=== PATIENT | male | born 1985 | race Caucasian/White ===

== ENCOUNTER 2017-04-28 09:08 | Emergency (ER) | payer OTHER ==
[~2017-04-28] VITALS: Ht 177.8 cm; Wt 104.3 kg
[~2017-04-28 09:08] MED LIST: AMOXICILLIN500 M2 PO
[2017-04-28 09:53] LABS: BASO % 0.3 % (0.0-1.0); EOS # 0.1 10*3/uL (0.0-0.4); EOS % 0.9 % (1.0-4.0); HEMOGLOBIN 14.9 g/dl (14.0-18.0); LYMPH # 1.3 10*3/uL (1.3-4.4); LYMPH % 18.9 % (27.0-41.0); MEAN CELL VOLUME 89.5 fl (80.0-94.0); MEAN CORPUSCULAR HGB CONC 32.4 g/dl (33.0-37.0); MEAN PLATELET VOLUME 10.7 fl (9.6-12.3); MONO # 0.4 10*3/uL (0.1-1.0); MONO % 6.3 % (3.0-9.0); NEUT # 5.1 10*3/uL (2.3-7.9); NEUT % 73.3 % (47.0-73.0); PLATELET COUNT AUTOMATED 255 10*3/uL (130-400); RED BLOOD COUNT 5.14 10*6/uL (4.50-5.90); RED CELL DISTRI WIDTH 12.5 % (0-14.5)
[2017-04-28 10:02] LABS: BILIRUBIN 1+ (NEGATIVE); BLOOD NEGATIVE (NEGATIVE); CLARITY CLOUDY (CLEAR); COLOR YELLOW (YELLOW); GLUCOSE NEGATIVE (NEGATIVE); KETONE 1+ (NEGATIVE); LEUKO ESTERASE NEGATIVE (NEGATIVE); NITRITE NEGATIVE (NEGATIVE); SPECIFIC GRAVITY 1.025 (1.005-1.030)
[2017-04-28 10:09] LABS: URINE AMPHETAMINES < 1000 (1000ng/ml); URINE BARBITURATES < 200 (200ng/ml); URINE BENZODIAZEPINES < 200 (200ng/ml); URINE CANNABINOIDS (THC) < 50 (50ng/ml); URINE COCAINE < 300 (300ng/ml); URINE METHADONE < 300 (300ng/ml); URINE OPIATES < 300 (300ng/ml)
[2017-04-28 10:10] LABS: MUCOUS 2+
[2017-04-28 10:11] LABS: ALBUMIN 3.9 gm/dl (3.1-4.5); ALKALINE PHOSPHATASE 76 U/L (45-117); BUN 15 mg/dl (7-24); CHLORIDE 103 mmol/L (98-107); CREATININE 1.31 mg/dL (0.70-1.30); POTASSIUM 3.3 mmol/L (3.5-5.1); SGOT/AST 22 IU/L (3-35); SGPT/ALT 31 U/L (12-78); SODIUM 139 mmol/L (136-145); TOTAL PROTEIN 7.9 gm/dL (6.4-8.2)
[2017-04-28 10:12] LABS: BACTERIA 1+
[2017-04-28 10:14] LABS: ACETAMINOPHEN (TYLENOL) < 2.0 ug/ml (10-30); ETHYL ALCOHOL < 3.0 mg/dl (<3)
[2017-04-28 10:14] LABS: URINE PHENCYCLIDINE < 25 (25ng/ml)
== END 2017-04-28 17:47 | disposition short-term general hospital (02) ==
LOC: ED 09:08
PROVIDERS: Nurse Practitioner Family
DX: F41.9 Anxiety disorder, unspecified (principal); F32.9 Major depressive disorder, single episode, unspecified; Z88.5 Allergy status to narcotic agent

== ENCOUNTER 2017-05-27 10:43 | Emergency (ER) | payer OTHER ==
[~2017-05-27] VITALS: Ht 177.8 cm; Wt 132.0 kg
[2017-05-27] MEDS ORDERED: ZOCOR5 MG PO (10:50)
[2017-05-27] MEDS ORDERED: MELATONIN3 MG PO (10:51)
[2017-05-27] MEDS ORDERED: PROPRANOLOL HCL10 MG PO (10:51)
[2017-05-27] MEDS ORDERED: LAMICTAL25 MG PO (10:51)
[2017-05-27] MEDS ORDERED: LATU80TA PO (10:52)
[2017-05-27 11:08] LABS: BASO # 0.1 10*3/uL (0.0-0.1); BASO % 0.7 % (0.0-1.0); EOS # 0.1 10*3/uL (0.0-0.4); EOS % 0.6 % (1.0-4.0); HEMATOCRIT 45.2 % (42.0-52.0); HEMOGLOBIN 14.9 g/dl (14.0-18.0); LYMPH # 1.6 10*3/uL (1.3-4.4); LYMPH % 18.4 % (27.0-41.0); MEAN CELL VOLUME 89.7 fl (80.0-94.0); MEAN CORPUSCULAR HGB 29.6 pg (27.0-31.0); MEAN PLATELET VOLUME 10.4 fl (9.6-12.3); MONO # 0.5 10*3/uL (0.1-1.0); MONO % 5.4 % (3.0-9.0); NEUT # 6.4 10*3/uL (2.3-7.9); NEUT % 74.7 % (47.0-73.0); PLATELET COUNT AUTOMATED 261 10*3/uL (130-400); RED BLOOD COUNT 5.04 10*6/uL (4.50-5.90); RED CELL DISTRI WIDTH 12.5 % (0-14.5); WHITE BLOOD COUNT 8.6 10*3/uL (4.8-10.8)
[2017-05-27 11:23] LABS: ALBUMIN 3.7 gm/dl (3.1-4.5); ALKALINE PHOSPHATASE 68 U/L (45-117); BUN 14 mg/dl (7-24); CHLORIDE 105 mmol/L (98-107); CREATININE 1.18 mg/dL (0.70-1.30); POTASSIUM 3.9 mmol/L (3.5-5.1); SGOT/AST 17 IU/L (3-35); SGPT/ALT 27 U/L (12-78); SODIUM 140 mmol/L (136-145); TOTAL PROTEIN 7.3 gm/dL (6.4-8.2)
[2017-05-27 11:24] LABS: ACETAMINOPHEN (TYLENOL) < 2.0 ug/ml (10-30); ETHYL ALCOHOL < 3.0 mg/dl (<3)
[2017-05-27 11:40] LABS: BILIRUBIN NEGATIVE (NEGATIVE); BLOOD NEGATIVE (NEGATIVE); CLARITY SL CLOUDY (CLEAR); COLOR YELLOW (YELLOW); GLUCOSE NEGATIVE (NEGATIVE); KETONE NEGATIVE (NEGATIVE); LEUKO ESTERASE NEGATIVE (NEGATIVE); NITRITE NEGATIVE (NEGATIVE); SPECIFIC GRAVITY 1.015 (1.005-1.030)
[2017-05-27 11:48] LABS: URINE AMPHETAMINES < 1000 (1000ng/ml); URINE BARBITURATES < 200 (200ng/ml); URINE BENZODIAZEPINES < 200 (200ng/ml); URINE CANNABINOIDS (THC) < 50 (50ng/ml); URINE COCAINE < 300 (300ng/ml); URINE METHADONE < 300 (300ng/ml); URINE OPIATES < 300 (300ng/ml); URINE PHENCYCLIDINE < 25 (25ng/ml)
[2017-05-27 11:49] LABS: BACTERIA TRACE
== END 2017-05-27 14:23 | disposition home health service (06) ==
LOC: ED 10:43
PROVIDERS: Nurse Practitioner Family
DX: R45.851 Suicidal ideations (principal); F41.9 Anxiety disorder, unspecified; F32.9 Major depressive disorder, single episode, unspecified; Z88.6 Allergy status to analgesic agent; Z91.018 Allergy to other foods; Z79.899 Other long term (current) drug therapy

== ENCOUNTER 2017-06-24 10:04 | Emergency (ER) | payer OTHER ==
[~2017-06-24] VITALS: Ht 177.8 cm; Wt 90.7 kg
[~2017-06-24 10:04] MED LIST changes: +LAMICTAL25 MG PO; +LATU80TA PO; +MELATONIN3 MG PO; +PROPRANOLOL HCL10 MG PO; +ZOCOR5 MG PO
[2017-06-24 10:34] LABS: BASO # 0.1 10*3/uL (0.0-0.1); BASO % 1.2 % (0.0-1.0); EOS # 0.5 10*3/uL (0.0-0.4); EOS % 5.7 % (1.0-4.0); HEMATOCRIT 44.8 % (42.0-52.0); HEMOGLOBIN 14.5 g/dl (14.0-18.0); LYMPH # 1.6 10*3/uL (1.3-4.4); MEAN CELL VOLUME 90.1 fl (80.0-94.0); MEAN CORPUSCULAR HGB 29.2 pg (27.0-31.0); MEAN CORPUSCULAR HGB CONC 32.4 g/dl (33.0-37.0); MEAN PLATELET VOLUME 10.5 fl (9.6-12.3); MONO # 0.9 10*3/uL (0.1-1.0); MONO % 9.6 % (3.0-9.0); NEUT # 6.2 10*3/uL (2.3-7.9); NEUT % 66.3 % (47.0-73.0); PLATELET COUNT AUTOMATED 246 10*3/uL (130-400); RED BLOOD COUNT 4.97 10*6/uL (4.50-5.90); RED CELL DISTRI WIDTH 12.7 % (0-14.5); WHITE BLOOD COUNT 9.3 10*3/uL (4.8-10.8)
[2017-06-24 10:46] LABS: BUN 16 mg/dl (7-24); CHLORIDE 106 mmol/L (98-107); SODIUM 140 mmol/L (136-145)
== END 2017-06-24 13:25 | disposition home or self-care (01) ==
LOC: ED 10:04
PROVIDERS: Emergency Medicine
DX: R59.1 Generalized enlarged lymph nodes (principal); Z79.899 Other long term (current) drug therapy; Z88.5 Allergy status to narcotic agent; Z87.891 Personal history of nicotine dependence

== ENCOUNTER → 2017-06-27 | Outpatient (CLI) | payer OTHER ==
[2017-06-27 10:35] LABS: HEMATOCRIT 48.8 % (42.0-52.0); HEMOGLOBIN 15.5 g/dl (14.0-18.0); MEAN CELL VOLUME 90.7 fl (80.0-94.0); MEAN CORPUSCULAR HGB 28.8 pg (27.0-31.0); MEAN CORPUSCULAR HGB CONC 31.8 g/dl (33.0-37.0); MEAN PLATELET VOLUME 10.2 fl (9.6-12.3); RED BLOOD COUNT 5.38 10*6/uL (4.50-5.90); RED CELL DISTRI WIDTH 12.6 % (0-14.5); WHITE BLOOD COUNT 6.8 10*3/uL (4.8-10.8)
[2017-06-27 11:07] LABS: BUN 19 mg/dl (7-24); CHLORIDE 104 mmol/L (98-107); CHOLESTEROL 187 mg/dL (<200); CREATININE 1.31 mg/dL (0.70-1.30); POTASSIUM 4.3 mmol/L (3.5-5.1); SGOT/AST 13 IU/L (3-35); SGPT/ALT 22 U/L (12-78); SODIUM 141 mmol/L (136-145); TRIGLYCERIDES 105 mg/dl (<150); VLDL CHOLESTEROL 21 mg/dL (6-40)
[2017-06-27 11:09] LABS: ALKALINE PHOSPHATASE 77 U/L (45-117); CPK 63 U/L (39-308); HDL CHOLESTEROL 36 mg/dl (40-60); LDL CHOLESTEROL 130 mg/dL (9-159); TOTAL PROTEIN 7.9 gm/dL (6.4-8.2)
== END | disposition home or self-care (01) ==
LOC: LAB 10:09
PROVIDERS: Family Medicine
DX: R22.1 Localized swelling, mass and lump, neck (principal); E55.9 Vitamin D deficiency, unspecified; E78.00 Pure hypercholesterolemia, unspecified; R53.83 Other fatigue

== ENCOUNTER → 2017-07-17 | Outpatient (CLI) | payer OTHER ==
[2017-07-17 13:40] LABS: BUN 17 mg/dl (7-24); CHLORIDE 105 mmol/L (98-107); CREATININE 1.48 mg/dL (0.70-1.30); PHOSPHOROUS 3.5 mg/dL (2.5-4.9); SODIUM 141 mmol/L (136-145)
== END | disposition home or self-care (01) ==
LOC: LAB 11:05
PROVIDERS: Family Medicine
DX: R94.4 Abnormal results of kidney function studies (principal)

== ENCOUNTER → 2017-08-03 | Outpatient (CLI) | payer OTHER | END | disposition home or self-care (01) | LOC: LAB 12:45 | DX: N18.3 Chronic kidney disease, stage 3 (moderate) (principal) ==

== ENCOUNTER → 2017-09-01 | Outpatient (CLI) | payer OTHER ==
[2017-09-01 12:41] LABS: ALBUMIN 4.1 gm/dl (3.1-4.5); BUN 14 mg/dl (7-24); CHLORIDE 107 mmol/L (98-107); POTASSIUM 4.2 mmol/L (3.5-5.1); SODIUM 142 mmol/L (136-145)
[2017-09-01 12:42] LABS: CREATININE 1.45 mg/dL (0.70-1.30); PHOSPHOROUS 2.8 mg/dL (2.5-4.9)
== END | disposition home or self-care (01) ==
LOC: LAB 11:42
PROVIDERS: Family Medicine
DX: N18.3 Chronic kidney disease, stage 3 (moderate) (principal)

== ENCOUNTER → 2017-12-08 | Outpatient (CLI) | payer OTHER ==
[2017-12-08 14:28] LABS: ALBUMIN 4.2 gm/dl (3.1-4.5); BUN 16 mg/dl (7-24); CHLORIDE 104 mmol/L (98-107); CHOLESTEROL 271 mg/dL (<200); CREATININE 1.54 mg/dL (0.70-1.30); HDL CHOLESTEROL 32 mg/dl (40-60); LDL CHOLESTEROL 200 mg/dL (9-159); PHOSPHOROUS 4.1 mg/dL (2.5-4.9); POTASSIUM 3.9 mmol/L (3.5-5.1); SODIUM 138 mmol/L (136-145); TRIGLYCERIDES 195 mg/dl (<150); VLDL CHOLESTEROL 39 mg/dL (6-40)
== END | disposition home or self-care (01) ==
LOC: LAB 13:26
PROVIDERS: Family Medicine
DX: E78.00 Pure hypercholesterolemia, unspecified (principal); N18.3 Chronic kidney disease, stage 3 (moderate)

== ENCOUNTER → 2018-02-08 | Outpatient (CLI) | payer OTHER ==
[2018-02-08 15:30] LABS: BASO # 0.1 10*3/uL (0.0-0.1); EOS # 0.2 10*3/uL (0.0-0.4); EOS % 3.3 % (1.0-4.0); HEMATOCRIT 50.2 % (42.0-52.0); HEMOGLOBIN 16.2 g/dl (14.0-18.0); LYMPH # 2.1 10*3/uL (1.3-4.4); LYMPH % 34.9 % (27.0-41.0); MEAN CELL VOLUME 88.7 fl (80.0-94.0); MEAN CORPUSCULAR HGB 28.6 pg (27.0-31.0); MEAN CORPUSCULAR HGB CONC 32.3 g/dl (33.0-37.0); MEAN PLATELET VOLUME 10.3 fl (9.6-12.3); MONO # 0.4 10*3/uL (0.1-1.0); MONO % 6.4 % (3.0-9.0); NEUT # 3.3 10*3/uL (2.3-7.9); NEUT % 54.1 % (47.0-73.0); PLATELET COUNT AUTOMATED 274 10*3/uL (130-400); RED BLOOD COUNT 5.66 10*6/uL (4.50-5.90); RED CELL DISTRI WIDTH 12.2 % (0-14.5); WHITE BLOOD COUNT 6.1 10*3/uL (4.8-10.8)
[2018-02-08 16:00] LABS: ALBUMIN 4.3 gm/dl (3.1-4.5); BILIRUBIN, DIRECT 0.1 mg/dL (0.0-0.2); FREE T4 0.96 ng/dl (0.76-1.46); TOTAL PROTEIN 7.6 gm/dL (6.4-8.2)
[2018-02-08 16:06] LABS: THYROID STIM HORMONE (HS) 2.71 uIU/ml (0.358-4.75)
== END | disposition home or self-care (01) ==
LOC: LAB 14:57
PROVIDERS: Internal Medicine
DX: F31.70 Bipolar disorder, currently in remission, most recent episode unspecified (principal); E78.2 Mixed hyperlipidemia; M54.5 Low back pain

== ENCOUNTER → 2020-01-06 | Outpatient (CLI) | payer OTHER ==
[2020-01-06 12:07] LABS: BASO # 0.1 10*3/uL (0.0-0.1); BASO % 0.8 % (0.0-1.0); EOS # 0.2 10*3/uL (0.0-0.4); EOS % 2.2 % (1.0-4.0); HEMATOCRIT 49.8 % (42.0-52.0); LYMPH # 3.4 10*3/uL (1.3-4.4); LYMPH % 36.8 % (27.0-41.0); MEAN CELL VOLUME 84.7 fl (80.0-94.0); MEAN CORPUSCULAR HGB 27.6 pg (27.0-31.0); MEAN CORPUSCULAR HGB CONC 32.5 g/dl (33.0-37.0); MEAN PLATELET VOLUME 10.4 fl (9.6-12.3); MONO # 0.5 10*3/uL (0.1-1.0); MONO % 4.9 % (3.0-9.0); NEUT # 5.1 10*3/uL (2.3-7.9); PLATELET COUNT AUTOMATED 352 10*3/uL (130-400); RED BLOOD COUNT 5.88 10*6/uL (4.50-5.90); RED CELL DISTRI WIDTH 12.8 % (0-14.5); WHITE BLOOD COUNT 9.2 10*3/uL (4.8-10.8)
[2020-01-06 12:36] LABS: CREATININE 1.9 mg/dL (0.70-1.30); POTASSIUM 3.9 mmol/L (3.5-5.1)
== END | disposition home or self-care (01) ==
LOC: LAB 11:25
PROVIDERS: ATTEND Registered Nurse Psychiatric/Mental Health
DX: F41.1 Generalized anxiety disorder (principal)